=== PATIENT | female | born 1945 | race Caucasian/White ===

== ENCOUNTER 2019-02-19 09:18 | Emergency (ER) | payer MEDICARE ==
[~2019-02-19] VITALS: Ht 160 cm; Wt 63.6 kg
[2019-02-19 09:53] LABS: BASOPHILS # (AUTO) 0.06 x10^3/uL (0-0.1); BASOPHILS % (AUTO) 1 % (0-1); EOSINOPHILS # (AUTO) 0.32 x10^3/uL (0-0.4); EOSINOPHILS % (AUTO) 4 % (1-7); LYMPHOCYTES # (AUTO) 1.69 x10^3/uL (1-3.4); LYMPHOCYTES % (AUTO) 21 % (22-44); MD NO; MEAN CORPUSCULAR HEMOGLOBIN 26.8 pg (27.0-34.8); MEAN CORPUSCULAR HGB CONC 32.2 g/dL (32.4-35.8); MEAN CORPUSCULAR VOLUME 83.2 fL (80-100); MONOCYTES # (AUTO) 0.47 x10^3/uL (0.2-0.8); MONOCYTES % (AUTO) 6 % (2-9); NEUTROPHILS # (AUTO) 5.67 x10^3/uL (1.8-6.8); NEUTROPHILS % (AUTO) 69 % (42-75); PLATELET COUNT 286 x10^3/uL (130-400); RED BLOOD COUNT 5.42 x10^6/uL (3.82-5.3); RED CELL DISTRIBUTION WIDTH 15.6 % (9.6-15.2)
--- NOTE | 2019-02-19 09:56 | NUR ---
Bedside report to MIRYAM Iraheta & Abhishek, pt care transferred at this time
[2019-02-19] MEDS ORDERED: ASPIRIN 81 MG TABLET CHEW PO ONE (10:00)
[2019-02-19 10:06] LABS: ALANINE AMINOTRANSFERASE 22 U/L (12-78); ALBUMIN 3.9 g/dL (3.4-5.0); ANION GAP 10 mmol/L (5-15); CALCIUM 8.8 mg/dL (8.5-10.1); CHLORIDE 106 mmol/L (98-107); CREATININE 1.08 mg/dL (0.55-1.02)
[2019-02-19 10:10] LABS: ALKALINE PHOSPHATASE 61 U/L (45-117); BILIRUBIN,TOTAL 0.7 mg/dL (0.2-1.0); TOTAL PROTEIN 7.1 g/dL (6.4-8.2); TROPONIN I < 0.015 ng/mL (0.000-0.045)
[2019-02-19] MEDS ORDERED: ASPIRIN 81 MG TABLET CHEW ONE (10:33)
--- NOTE | 2019-02-19 10:55 | NUR ---
PRECEPTOR NOTE: PT WAS UP TO RESTROOM FOR UA SPECIMEN BUT NOT ABLE TO VOID. PT HAD DEPENDS ON AND SOILED HERSELF PER PT PRIOR TO ARRIVAL WHEN SHE HAD SYNCOPAL EPISODE BUT DID NOT REALIZE IT. PT WAS ABLE TO CLEAN HERSELF UP. PT MOVED TO TR01 AND REPORT GIVEN TO ZUHAIR WITT.
--- NOTE | 2019-02-19 11:25 | NUR ---
STEADY AMBULATION WITH STANDBY ASSIST TO BATHROOM.
[2019-02-19 11:43] LABS: MICROSCOPIC AUTO
[2019-02-19 11:44] LABS: CULTURE INDICATED? YES
--- NOTE | 2019-02-19 12:12 | NUR ---
PATIENT RESTING IN BED. CALL LIGHT IN REACH.
--- NOTE | 2019-02-19 13:04 | NUR ---
ERMD AT BEDSIDE TO DISCUSS POC
[2019-02-19 13:22] VITALS: BP 158/78
--- NOTE | 2019-02-19 13:31 | NUR ---
DISCHARGE INSTRUCTIONS REVIEWED. EDSTINY HUTCHISON NOTIFIED PATIENT READY FOR PICKUP.
== END 2019-02-19 13:47 | disposition home or self-care (01) ==
LOC: ED 13:37
DX: R55 Syncope and collapse (principal); N39.0 Urinary tract infection, site not specified; Z87.891 Personal history of nicotine dependence; Z86.73 Personal history of transient ischemic attack (TIA), and cerebral infarction without residual deficits
CPT/HCPCS: 36415; 71045; 80053; 81001; 83690; 84484; 85025; 87077; 87086; 87186; 93005; 99283; 99284